=== PATIENT | male | born 1940 | race Caucasian/White ===

== ENCOUNTER 2018-02-23 09:51 | Observation (INO) ==
[2018-02-23] MEDS ORDERED: Gelatin Size 100 Topical Foam ONE (10:28)
[2018-02-23] MEDS ORDERED: Thrombin Topical Soln 5,000 UNIT Vial TOPICAL ONE (10:28)
[2018-02-23] MEDS ORDERED: ceFAZolin 1 GM Premix Inj 2 GM/100 ML FROZ.PIGGY IV.SIG ONE (10:28)
[2018-02-23] MEDS ORDERED: Chlorhexidine Gluconate 2% 1 Pack (2 Cloths) TOPICAL ONE ×2 (10:40→10:45)
[2018-02-23] MEDS ORDERED: Metoprolol Tartrate 25 MG Tablet PO ONE (10:40)
[2018-02-23] MEDS ORDERED: Sodium Chlor 0.9% Inj 500 ML IV.SIG SCH ×2 (11:00)
[2018-02-23] MEDS ORDERED: Vancomycin Inj 1,000 MG in Sodium Chlor 0.9% Inj 250 ML IV.SIG SCH (12:00)
[2018-02-23] MEDS ORDERED: Lidocaine PF 1% Inj 5 ML Syringe OTHER ONE (12:50)
[2018-02-23] MEDS ORDERED: Phenylephrine/NS 1000 MCG/10ML Syringe IV.PUSH ONE (12:50)
[2018-02-23] MEDS ORDERED: Neostigmine Inj 5 MG/5 ML Syringe IV.PUSH ONE (12:50)
[2018-02-23] MEDS ORDERED: Glycopyrrolate Inj 1 MG/5 ML Syringe IV.PUSH ONE (12:50)
[2018-02-23] MEDS ORDERED: fentaNYL Citrate Inj 100 MCG/2 ML Ampul ONE (15:19)
[2018-02-23] MEDS ORDERED: Bisacodyl 10 MG Supp RECTAL PRN (15:28)
--- NOTE | 2018-02-23 16:17 | P.OP ---
Preoperative Diagnosis: Cervical spinal stenosis Postoperative Diagnosis: Cervical spinal stenosis Date of procedure: 02/23/18 Procedure: C4-5 anterior cervical discectomy, interbody arthrodesis using PEEK cage filled with autologous bone graft, Simplicity plate and screws Anesthesia: SE Surgeon: Brandyn Bruce MD Car Cleaning Supervisor: Barb Latham Pathology: none sent Operation and Findings: INDICATIONS FOR THE PROCEDURE Mr Yu is a 77 year old male who presented a with intractable neck pain and cervical radiculopathy. He has history of a prior C5-6 anterior cervical fusion and developed severe degenerative disk disease with severe stenosis at C4-5 with compression of the spinal cord. He failed nonoperative treatment. A surgical decompression and arthrodesis were indicated. The [id number] details of the procedure, indications, alternatives, risks and potential complications were fully discussed with the patient. The patient fully understood. All The questions were answered. No guarantees were given. The patient voiced requesting the procedure and provided informed consents. The patient was offered the alternative of delaying the procedure and continuing with nonsurgical management. DETAILS OF THE SURGICAL PROCEDURE After the induction of general anesthesia, endotracheal intubation was performed. A Velasquez catheter, bilateral PEDRO LUIS hose, and sequential compression devices were placed and kept throughout the procedure. The patient was positioned supine on a Ray table with the head over a gel doughnut. All pressure points were carefully padded with egg crate mattress. The eyes were tapped shut after ointment was applied by the anesthesiologist to prevent corneal abrasion. A Emiliano hugger was placed over the exposed lower body to maintain control of the core body temperature. The electrophysiological team placed the needles and electrodes in their proper location and baseline SSEP's and motor evoked potentials were registered. The anterior cervical region was prepped and draped in the usual sterile fashion. A localizing x-ray was performed with a C-arm. The surgical procedure was performed in several steps as follow: SURGICAL APPROACH A skin incision was made along the middle cervical crease with a #10 blade. The dissection was carried out through the platysma exposing the sternocleidomastoid muscle. The cervical spine was approached following the fascial layers of the neck just medial to the anterior border of the sternocleidomastoid and carotid sheath by a combination of sharp and dull dissection. The omohyoid muscle was identified and carefully dissected laterally and the deep cervical fascia was carefully opened. The longus colli muscles were retracted to each side of the midline. A marker was placed at the disc space C4-5 and a cross-table lateral x-ray performed with a C-arm. SURGICAL DECOMPRESSION In order to decompress the anterior surface of the spinal cord it was necessary to preform a microsurgical resection of the disk. At this point in the procedure the operating microscope was draped in the usual sterile fashion and brought to the field. The rest of the surgical procedure was performed using microdissection technique with the exception of the closure. Under the operative microscopic, an anterior osteophytic spur was carefully removed using the leksell, and a self-retaining retractor was placed underneath the longus colli muscle. The annulus at C4-5 was incised with a #15 blade and microdiscectomy was then carefully carried out using angled curets and pituitary forceps. The patient had a posterior disk extrusion which was producing mass affect on the anterior surface of the dural sac and spinal cord compression. This was carefully drilled with a TPS drill and resected with a think foot plate 2mm kerrison under high magnification. The posterior longitudinal ligament was then elevated with an angled curet and incised with a 15 bladed knife. A careful ressection of the posterior longitudinal ligament was carried out using a thin footplate 2 mm Kerrison. The decompression was then carried out laterally, and a bilateral foraminotomy was performed with a 2mm thin foot Kerrison. Then the vertebral bodies above and below the disk space were undercut using a 2 mm thin foot Kerrison. The epidural space was the systematically assessed with a nerve hook in search for disk fragments. An excellent decompression was achieved in both, the dural sac and bilateral exiting nerve roots. The incision was then irrigated with a large amount of antibiotic solution INTERBODY ARTHRODHESIS In order to avoid collapse of the disk space which would result in bilateral foraminal stenosis, and to increase the chances of a successful fusion, it was necessary to place an interbody cage filled with autologous bone. At this point of the procedure, the superior and inferior endplates were then evenly decorticated with a TPS drill. The use of a drill in combination with a curette allowed me to systematically remove the cartilaginous endplates, exposing healthy bone for the interbody arthrodesis. fourteen millimeters distraction pins were then placed at the vertebral bodies adjacent to the disk space, and gentle distraction was applied. The size of the interbody cage was then assessed using different size spacers, and a rasp was used to ensure no residual cartilage. A PEEK cage of the appropriate size was selected, and the interbody arthrodesis was then preformed by carefully impacting a PEEK cage filled with autologous bone graft to the disc space C4-5. An excellent position of the cage was achieved. This was was confirmed anatomically by feelling the space posterior to the implant and distance to the anterior surface of the dural sac. Radiological confirmation of the position was performed with a cross lateral xray performed with the C-arm. INTERNAL INSTRUMENTAL FIXATION Once that the interbody device was in an appropriate position, it was necessary to stabilize the spine with anterior instrumentation. Anterior instrumentation has demonstrated to increase the rate of fusion, accelerate the patient's recovery, and decrease the rate of failed interbody grafts. At this point of the procedure, the distance between the vertebral bodies was carefully measures, and a Simplicity plate was brought to the field and presented in front of the C4 and C5 vertebral bodies. Radial Arm Saw Operator holes were then drilled using the TPS drill, and the plate was then secured to the spine using self-drilling, self-tapping screws. Initially, the inferior right screw was inserted, followed by placement of the contra lateral upper screw. The remaining screws were sequentially placed in a contra-lateral fashion. A proper purchase was achieved with all screws and the position of the cage, plate and screws, and alignment of the spine was assessed anatomically by direct visualization, and radiologically by performing a cross lateral xray of the cervical spine with the C-arm. CLOSURE The incision was irrigated with several liters of antibiotic solution. Hemostasis was achieved with a bipolar. The screws were locked to prevent backing out. A 7 mm Ray-Bravo drain was left in the prevertebral space and externalized through a separate stab incision. The incision was then closed in layers. 3-0 Vicryl with interrupted sutures was used to close the platysma and subcutaneous tissue. The skin was closed with 4-0 running subcuticular Vicryl and Dermabond was applied to the skin. The drain was secured with a 3-0 nylon. At the end of the procedure the sponge, needle and instrument counts were all correct. The estimated blood loss was less than 50 cc. No blood transfusion was given. No intraoperative complications occurred. The patient received prophylactic antibiotics. The patient was then extubated and transferred to the recovery room in stable condition.
--- NOTE | 2018-02-23 16:20 | XR ---
EXAM DATE: 02/23/2018 3:32 PM EST AGE/SEX: 77 years / Male INDICATIONS: Fusion C4,C5 with screw and plate placement. CLINICAL DATA: This is the patient's initial encounter. Patient reports that signs and symptoms have been present for 1 day and indicates a pain score of Nonresponsive. MEDICAL/SURGICAL HISTORY: None. Fusion, cervical. COMPARISON: No prior exams available for comparison. FINDINGS: Plate with screws seen bridging the C4-C5 level with graft. Anatomic alignment. CONCLUSION: Anatomic alignment Electronically signed by: Fitz Steele MD 02/23/2018 4:18 PM EST
--- NOTE | 2018-02-23 18:38 | P.DS ---
Date of admission: 02/23/18 15:33 Primary care physician: Grover Espitia MD Brief History from admission: Mr Yu is a 77 year old male who presented a with intractable neck pain and cervical radiculopathy. He has history of a prior C5-6 anterior cervical fusion and developed severe degenerative disk disease with severe stenosis at C4-5 with compression of the spinal cord. He failed nonoperative treatment. A surgical decompression and arthrodesis were indicated. DS: Medications - Discharge Medications Prescriptions: hydrocodone-acetaminophen 1 tab PO Q4H PRN #18 tab PRN Reason: Pain Scale 1 To 5 DS: Summary Hospital Course: Mr. Yu underwent a C4-5 anterior cervical discectomy, interbody arthrodesis using PEEK cage filled with autologous bone graft, Simplicity plate and screws for Cervical spinal stenosis on 02/23/18. His surgery went well without complications. He was discharged home in stable conditions. - Time Spent with Patient Total time spent providing and/or coordinating discharge services: Less than 30 minutes - Quality: VTE Deep Vein Thrombosis/Pulmonary Embolism Present on Admission: No Exam Vital signs: Vital Signs 02/23/18 10:58 02/23/18 15:15 02/23/18 15:30 Temperature 97.9 F 97.6 F 97.7 F Pulse Rate 72 80 87 Respiratory Rate 20 14 14 Blood Pressure 143/83 H 118/58 L 128/73 Pulse Oximetry 95 95 02/23/18 15:45 02/23/18 16:00 02/23/18 16:12 Temperature 97.7 F 97.7 F Pulse Rate 82 78 Respiratory Rate 14 14 Blood Pressure 132/74 137/77 Pulse Oximetry 96 95 95 02/23/18 16:30 Temperature 97.7 F Pulse Rate 80 Respiratory Rate 14 Blood Pressure 146/69 H Pulse Oximetry 95 Intake & Output 02/22/18 02/23/18 02/23/18 18:59 06:59 18:59 Intake Total 1700 / 1700 Output Total 230 / 230 Balance 1470 / 1470 Weight 103.7 kg Intake: Anesthesia Amount 1700 / 1700 Output: Urine 200 / 200 Estimated Blood Loss 30 / 30 Other: Weight On Admission 103.7 kg Results Procedures completed during hospitalization: C4-5 anterior cervical discectomy, interbody arthrodesis using PEEK cage filled with autologous bone graft, Simplicity plate and screws - Impressions ITS Impressions Cervical Spine X-Ray 02/23/18 00:00 CONCLUSION: Anatomic alignment Discharge Plan - Discharge Disposition Patient Disposition: 01 Discharge Home - Discharge Condition Condition: Good - Discharge Order Discharge Orders: Discharge Order (Routine); Ordered 02/24/18 Ordered By: Maddie Ahuja - Physicians Team Primary Care Provider: Grover Espitia Attending Provider: Brandyn Bruce - Rxs /Orders / Referrals /Forms Prescriptions: New hydrocodone-acetaminophen 10-325 mg Tablet 1 tab PO Q4H PRN (Reason: Pain Scale 1 To 5) Qty: 18 RF: 0 Continue ascorbic acid (vitamin C) [Vitamin C] 500 mg Tablet 500 mg PO DAILY aspirin [Adult Low Dose Aspirin] 81 mg Tablet,Delayed Release (Dr/Ec) 81 mg PO DAILY [id number] K [Adults Multivitamin] 18 mg iron-400 mcg-25 mcg Tablet 1 tab PO DAILY Referrals: Grover Espitia MD [Primary Care Provider] - See Instructions - Discharge Instructions Patient Printed Instructions: Hydrocodone/Acetaminophen (By mouth), Laminectomy (DC)
[2018-02-23] MEDS: Senna/Docusate Sodium 8.6/50 MG Tablet PO SCH (20:53)
[2018-02-23 21:03] VITALS: O2SAT 93
[2018-02-23] MEDS: ceFAZolin 2 GM Premix Inj 2 GM/50 ML PIGGYBACK IV.SIG SCH (21:30)
[2018-02-23] MEDS ORDERED: Propofol Inj 500 MG/50 ML Vial ONE (22:05)
[2018-02-24 04:46] VITALS: RESP 18
[2018-02-24] MEDS: ceFAZolin 2 GM Premix Inj 2 GM/50 ML PIGGYBACK IV.SIG SCH ×2 (05:22→12:15)
[2018-02-24] MEDS: Senna/Docusate Sodium 8.6/50 MG Tablet PO SCH (08:17)
[2018-02-24 12:08] VITALS: BP 129/61; PULSE 77; TEMP 97.3
== END 2018-02-24 13:09 | disposition home or self-care (01) ==
LOC: HSDC 09:51 → HSDI 09:51 → N06 17:03
PROVIDERS: ADMIT Neurological Surgery; ATTEND Neurological Surgery